=== PATIENT | male | born 2000 | race African-American/Black ===

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

== ENCOUNTER 2022-09-20 11:04 | Emergency (ER) | payer OTHER ==
[2022-09-20] MEDS ORDERED: Ibuprofen 200 MG TAB ONE (14:20)
[2022-09-20] MEDS ORDERED: Acetaminophen 500 MG TAB ONE (14:20)
== END 2022-09-20 15:16 | disposition home or self-care (01) ==
LOC: CSHERS 11:04
DX: J03.90 Acute tonsillitis, unspecified (principal)
CPT/HCPCS: 87081; 87430; 99283

== ENCOUNTER 2023-10-15 10:32 | Emergency (ER) | payer OTHER, SELFPAY | END 2023-10-15 11:29 | disposition home or self-care (01) | LOC: CSHERS 10:32 | DX: S93.602A Unspecified sprain of left foot, initial encounter (principal); Y93.75 Activity, martial arts ==